=== PATIENT | male | born 1960 | race Caucasian/White ===

== ENCOUNTER 2022-11-28 07:18 | Emergency (ER) | payer OTHER, BC ==
[~2022-11-28] VITALS: Ht 175.3 cm; Wt 86.1 kg
[2022-11-28 07:58] LABS: BASO% 0.9 % (0-3); EOS% 2.7 % (0-8); HEMATOCRIT 32.1 % (39.0-50.0); HEMOGLOBIN 10.3 g/dl (14.0-18.0); IMMATURE GRANULOCYTES 0.1 % (0.0-5.0); LYMPH% 11.2 % (15-41); MEAN CELL VOLUME 98.8 fL CALC (80.0-100.0); MEAN CORPUSCULAR HGB 31.7 pG CALC (26.0-32.0); MEAN CORPUSCULAR HGB CONC 32.1 g/dL CAL (32.0-36.0); MONO% 12.1 % (2-13); NEUT# 5.86 thou/uL (1.82-7.42); RED BLOOD COUNT 3.25 mill/uL (4.70-6.10)
[2022-11-28 08:15] LABS: ALBUMIN 4.1 g/dL (3.2-5.0); BILIRUBIN, TOTAL 0.4 mg/dL (0.2-1.3); CREATININE 4.2 mg/dL (0.7-1.3); POTASSIUM 4.1 mmol/l (3.5-5.1)
[2022-11-28] MEDS ORDERED: CEPHALEXIN500 M1 PO (09:23)
[2022-11-28 09:40] VITALS: BP 166/70
== END 2022-11-28 09:29 | disposition home or self-care (01) | DRG 604 ==
LOC: ED 07:18
PROVIDERS: Family Medicine
PROC: 0HQFXZZ Repair Right Hand Skin, External Approach (ICD-10-PCS; principal; 2022-11-28)
DX: S61.216A Laceration without foreign body of right little finger without damage to nail, initial encounter (principal); N18.6 End stage renal disease; I12.0 Hypertensive chronic kidney disease with stage 5 chronic kidney disease or end stage renal disease; V49.40XA Driver injured in collision with unspecified motor vehicles in traffic accident, initial encounter; E11.22 Type 2 diabetes mellitus with diabetic chronic kidney disease; Z99.2 Dependence on renal dialysis; Z79.4 Long term (current) use of insulin; M54.2 Cervicalgia